=== PATIENT | male | born 1935 | race Caucasian/White ===

== ENCOUNTER 2017-01-21 18:34 | Emergency (ER) | payer MEDICARE, OTHER ==
[2017-01-21] MEDS ORDERED: Sodium Chloride 0.9% 10 ML Syringe FLUSH PRN (18:56)
[2017-01-21] MEDS ORDERED: Sodium Chloride 0.9% 1,000 ML IV SCH (19:00)
--- NOTE | 2017-01-21 19:16 | EDM.PDOC ---
ED HPI ALTERED MENTAL STATUS - General Chief Complaint: Neurological Problem Stated Complaint: CONFUSED Time Seen by Provider: 01/21/17 18:45 Source of Information: Reports: Patient, Family, RN, RN notes reviewed History Limitations: Reports: Altered mental status - History of Present Illness INITIAL COMMENTS - FREE TEXT/NARRATIVE: Patient is brought to the ED at [facility] via POV with a complain of new onset acute confusion. The states the patient was started on Aricept 5 mg the beginning of December. Patient's symptoms did not improve, so his dose was increased to 10 mg about 4 days ago. believe his symptoms correlate with the dose increase 4 days ago. No recent head trauma or injury. Patient has known dementia. states patient has not been eating or drinking well. Patient has been more confused and restless at home. No other changes with medications. Baseline Mental Status: Reports: alert/confused, ST memory loss, demented Timing/Duration: Reports: Constant Context: Reports: chronic/long standing, new meds, change medication regime - Related Data Allergies/ADRs: Allergies No Known Allergies Allergy (Verified 01/21/17 18:45) Home Meds: Home Meds Aspirin 01/21/17 [History] Bimatoprost [LUMIGAN 0.01% Ophth Soln] 01/21/17 [History] Calcium Citrate/Vitamin D3 [Calcium Cit-Vit D 315-200] 01/21/17 [History] Donepezil [Aricept] 01/21/17 [History] Levothyroxine 01/21/17 [History] Midodrine HCl [Midodrine HCl] 01/21/17 [History] Multivitamin [Multivitamins] 01/21/17 [History] Nitrofurantoin Macrocrystal [Macrodantin] 100 mg PO BID #10 capsule 01/21/17 [Rx ] Rosuvastatin [Crestor] 01/21/17 [History] Past Medical History Cardiovascular History: Reports: Bypass, Pacemaker - Past Surgical History GI Surgical History: Reports: Cholecystectomy Social & Family History - Tobacco Use Smoking Status *Q: Never Smoker - Recreational Drug Use Recreational Drug Use: No ED ROS GENERAL - Review of Systems Review Of Systems: See Below (ROS obtain from patient's ) Constitutional: Denies: fever, chills, weakness Respiratory: Denies: shortness of breath, cough Cardiovascular: Denies: Chest pain, Palpitations GI/Abdominal: Reports: Diarrhea. Denies: Abdominal pain, Nausea, Vomiting Skin: Reports: no symptoms Neurological: Reports: headache. Denies: dizziness, numbness, paresthesia, tingling - Physical Exam Exam: See Below Exam Limited By: Altered mental status General Appearance: alert, no apparent distress Eye Exam: bilateral eye: EOMI, normal inspection, PERRL Ears: normal external exam, normal canal, hearing grossly normal, normal TMs Nose: normal inspection, normal mucosa Throat/Mouth: Normal inspection, Normal oropharynx, No airway compromise Head Exam: atraumatic, normocephalic Neck: supple Respiratory/Chest: no respiratory distress, lungs clear, decreased breath sounds Cardiovascular: normal peripheral pulses, regular rate, rhythm GI/Abdominal: normal bowel sounds, soft, non tender, no distention Neuro Exam (Abbreviated): alert, inattentive, confused, disoriented, slow to respond Skin Exam: Warm, Dry, Intact, Normal color, No rash EKG INTERPRETATION EKG Date: 01/21/17 Time: 19:04 Rhythm: other (Atrial Paced) Rate (beats/min): 70 Jackson: LAD-left axis deviation P-wave: enlarged QRS: normal ST-T: normal QT: normal MI/PQ Interval: 0.24 Comparison: NA - no prior EKG EKG Interpretation Comments: 1. Electric Atrial Pacemaker 2. Marked Left Jackson deviation (QRS Jackson <-30) 3. Moderate IVCD (110+ ms QRS duration) 4. Voltage criteria for LVH (Meets criteria in one of: R(aVL), S(V1), R(V5), R( v5/v6)+S(V1) 5. Non-specific T wave abnormality Course - Vital Signs Last Recorded V/S: Last Vital Signs Temp 35.5 C 01/21/17 18:47 Pulse 64 01/21/17 18:47 Resp 16 01/21/17 18:47 BP 135/80 01/21/17 18:47 Pulse Ox 95 01/21/17 18:47 - Orders/Labs/Meds Orders: Active Orders 24 hr Category Date Time Status EKG 12 Lead [EKG Documentation Completion] [RC] STAT Care 01/21/17 18:55 Active Insert Munson Catheter [Insert Urinary Catheter] [OM.PC] Care 01/21/17 20:15 Ordered Q24H Urinary Catheter Assessment [RC] ASDIRECTED Care 01/21/17 20:03 Active Head wo Cont [CT] Stat Exams 01/21/17 18:55 Taken Sodium Chloride 0.9% [Normal Saline] 1,000 ml Med 01/21/17 19:00 Active IV ASDIRECTED Sodium Chloride 0.9% [Saline Flush] Med 01/21/17 18:56 Active 10 ml FLUSH ASDIRECTED PRN Peripheral IV Insertion Adult [OM.PC] Routine Oth 01/21/17 18:56 Ordered Medication Orders Sodium Chloride (Normal Saline) 1,000 mls @ 999 mls/hr IV ASDIRECTED MILTON Last Admin: 01/21/17 19:26 Dose: 999 mls/hr Sodium Chloride (Saline Flush) 10 ml FLUSH ASDIRECTED PRN PRN Reason: Keep Vein Open Labs: Laboratory Tests 01/21/17 01/21/17 01/21/17 Range/Units 19:10 19:10 19:10 WBC 10.5 H (4.0-10.0) x10^3/uL RBC 4.95 (4.5-6.0) x10^6/uL Hgb 15.2 (14.0-18.0) g/dL Hct 45.2 (40.0-52.0) % MCV 91.3 (78.0-93.0) fL MCH 30.7 (26.0-32.0) pg MCHC 33.6 (32.0-36.0) g/dL RDW Coeff of Adán 14.2 (10.0-15.0) % Plt Count 217 (130-400) x10^3/uL Neut % (Auto) 87.8 H (50.0-80.0) % Lymph % (Auto) 6.2 L (25.0-50.0) % [place] % (Auto) 5.5 (2.0-11.0) % Eos % (Auto) 0.3 (0.0-4.0) % Baso % (Auto) 0.2 (0.2-1.2) % POC ABG pH (7.35-7.45) POC ABG pCO2 (35-45) mmHG POC ABG pO2 (80-105) mmHG POC ABG HCO3 (22-26) mmol/L POC ABG Total CO2 (23-27) mmol/L POC ABG O2 Sat (95-98) % POC ABG Base Excess (-2-3) mmol/L POC FiO2 Sodium 137 (136-145) mmol/L Potassium 4.2 (3.5-5.1) mmol/L Chloride 104 (98-107) mmol/L Carbon Dioxide 26 (21-32) mmol/L BUN 19 H (7-18) mg/dL Creatinine 1.2 (0.70-1.30) mg/dL Est Cr Clr Drug Dosing 49.85 mL/min Estimated GFR (MDRD) 58 Glucose 119 H (74-106) mg/dL Lactic Acid 1.3 (0.4-2.0) mmol/L Calcium 9.0 (8.5-10.1) mg/dL Corrected Calcium 9.32 (8.5-10.1) mg/dL Total Bilirubin 1.6 H (0.2-1.0) mg/dL AST 23 (15-37) U/L ALT 26 (16-63) U/L Alkaline Phosphatase 106 (46-116) U/L C-Reactive Protein 1.9 H (<=0.9) mg/dL Total Protein 7.0 (6.4-8.2) g/dL Albumin 3.6 (3.4-5.0) g/dL Globulin 3.4 Albumin/Globulin Ratio 1.06 TSH, Ultra Sensitive (0.358-3.74) uIU/mL Urine Color (YELLOW) Urine Appearance (CLEAR) Urine pH (5.0-8.0) Ur Specific Marion Urine Protein (NEGATIVE) mg/dL Urine Glucose (UA) (NEGATIVE) mg/dL Urine Ketones (NEGATIVE) mg/dL Urine Occult Blood (NEGATIVE) Urine Nitrite (NEGATIVE) Urine Bilirubin (NEGATIVE) Urine Urobilinogen (0.2) EU/dL Ur Leukocyte Esterase (NEGATIVE) Urine RBC (NOT SEEN) /HPF Urine WBC (NOT SEEN) /HPF Ur Transition Epith Cell (NEGATIVE) /HPF Urine Bacteria (NEGATIVE) /HPF Urine Mucus (NEGATIVE) /LPF 01/21/17 01/21/17 01/21/17 Range/Units 19:10 19:21 20:17 WBC (4.0-10.0) x10^3/uL RBC (4.5-6.0) x10^6/uL Hgb (14.0-18.0) g/dL Hct (40.0-52.0) % MCV (78.0-93.0) fL MCH (26.0-32.0) pg MCHC (32.0-36.0) g/dL RDW Coeff of Adán (10.0-15.0) % Plt Count (130-400) x10^3/uL Neut % (Auto) (50.0-80.0) % Lymph % (Auto) (25.0-50.0) % [place] % (Auto) (2.0-11.0) % Eos % (Auto) (0.0-4.0) % Baso % (Auto) (0.2-1.2) % POC ABG pH 7.392 (7.35-7.45) POC ABG pCO2 34 L (35-45) mmHG POC ABG pO2 68 L (80-105) mmHG POC ABG HCO3 21 L (22-26) mmol/L POC ABG Total CO2 22 L (23-27) mmol/L POC ABG O2 Sat 93 L (95-98) % POC ABG Base Excess -4 L (-2-3) mmol/L POC FiO2 0.21 Sodium (136-145) mmol/L Potassium (3.5-5.1) mmol/L Chloride (98-107) mmol/L Carbon Dioxide (21-32) mmol/L BUN (7-18) mg/dL Creatinine (0.70-1.30) mg/dL Est Cr Clr Drug Dosing mL/min Estimated GFR (MDRD) Glucose (74-106) mg/dL Lactic Acid (0.4-2.0) mmol/L Calcium (8.5-10.1) mg/dL Corrected Calcium (8.5-10.1) mg/dL Total Bilirubin (0.2-1.0) mg/dL AST (15-37) U/L ALT (16-63) U/L Alkaline Phosphatase (46-116) U/L C-Reactive Protein (<=0.9) mg/dL Total Protein (6.4-8.2) g/dL Albumin (3.4-5.0) g/dL Globulin Albumin/Globulin Ratio TSH, Ultra Sensitive 3.200 (0.358-3.74) uIU/mL Urine Color Dark yellow H (YELLOW) Urine Appearance Turbid H (CLEAR) Urine pH 5.5 (5.0-8.0) Ur Specific Marion 1.025 Urine Protein Trace H (NEGATIVE) mg/dL Urine Glucose (UA) Negative (NEGATIVE) mg/dL Urine Ketones 40 H (NEGATIVE) mg/dL Urine Occult Blood Small H (NEGATIVE) Urine Nitrite Positive H (NEGATIVE) Urine Bilirubin Negative (NEGATIVE) Urine Urobilinogen 0.2 (0.2) EU/dL Ur Leukocyte Esterase Negative (NEGATIVE) Urine RBC 0-5 (NOT SEEN) /HPF Urine WBC 5-10 H (NOT SEEN) /HPF Ur Transition Epith Cell Occasional H (NEGATIVE) /HPF Urine Bacteria Many H (NEGATIVE) /HPF Urine Mucus Rare H (NEGATIVE) /LPF Meds: Medications Generic Name Dose Route Start Last Admin Trade Name Freq PRN Reason Stop Dose Admin Sodium Chloride 1,000 mls @ 999 mls/hr 01/21/17 19:00 01/21/17 19:26 Normal Saline IV 999 mls/hr ASDIRECTED MILTON Administration Sodium Chloride 10 ml 01/21/17 18:56 Saline Flush FLUSH ASDIRECTED PRN Keep Vein Open Departure - Departure Time of Disposition: 20:42 Disposition: Home, Self-Care 01 Condition: good Clinical Impression: Urinary tract infection Qualifiers: Urinary tract infection type: acute cystitis Hematuria presence: with hematuria Qualified Code(s): N30.01 - Acute cystitis with hematuria Dementia Qualifiers: Dementia type: unspecified type Dementia behavioral disturbance: with behavioral disturbance Qualified Code(s): F03.91 - Unspecified dementia with behavioral disturbance Prescriptions: Nitrofurantoin Macrocrystal [Macrodantin] 100 mg PO BID #10 capsule Instructions: Urinary Tract Infection, Adult Referrals: Lily Stephens MD [Primary Care Provider] - Forms: ED Department Discharge Additional Instructions: 1. Stay well hydrated and rest 2. Take antibiotics for the full coarse, even if you are feeling better 3. See your Primary as symptoms warrant; may discuss concerns about Aricept with Dr. Kat WU Communication - ED Communication Date/Time Date: 01/21/17 Time Called: 20:05 - Discussed Case With (1) Discussed Case With (1): Radiologist Person/s Notified (1): Herbie Stoner - Conversation Summary Radiology Reading Discussed with Radiologist: Yes Summary Comment: No acute changes/pathology on CT Head scan - Problem List Review Problem List Initiated/Reviewed/Updated: Yes - My Orders Last 24 Hours: My Active Orders 01/21/17 18:55 EKG 12 Lead [EKG Documentation Completion] [RC] STAT Head wo Cont [CT] Stat 01/21/17 18:56 Sodium Chloride 0.9% [Saline Flush] 10 ml FLUSH ASDIRECTED PRN Peripheral IV Insertion Adult [OM.PC] Routine 01/21/17 19:00 Sodium Chloride 0.9% [Normal Saline] 1,000 ml IV ASDIRECTED 01/21/17 20:03 Urinary Catheter Assessment [RC] ASDIRECTED 01/21/17 20:15 Insert Munson Catheter [Insert Urinary Catheter] [OM.PC] Q24H - Assessment/Plan Last 24 Hours: My Active Orders 01/21/17 18:55 EKG 12 Lead [EKG Documentation Completion] [RC] STAT Head wo Cont [CT] Stat 01/21/17 18:56 Sodium Chloride 0.9% [Saline Flush] 10 ml FLUSH ASDIRECTED PRN Peripheral IV Insertion Adult [OM.PC] Routine 01/21/17 19:00 Sodium Chloride 0.9% [Normal Saline] 1,000 ml IV ASDIRECTED 01/21/17 20:03 Urinary Catheter Assessment [RC] ASDIRECTED 01/21/17 20:15 Insert Munson Catheter [Insert Urinary Catheter] [OM.PC] Q24H
[2017-01-21] MEDS ORDERED: Take Home: Nitrofurantoin Monohydrate/Macrocrystalline 100 MG, 2 Cap Pack PO ONE (20:48)
[2017-01-21] MEDS ORDERED: Nitrofurantoin Monohydrate/Macrocrystalline 100 MG Cap ONE (21:00)
[2017-01-21 21:07] VITALS: BP 134/71
== END 2017-01-21 21:17 | disposition home or self-care (01) ==
LOC: VM.ED 18:34
DX: F03.91 Unspecified dementia, unspecified severity, with behavioral disturbance (principal); N30.01 Acute cystitis with hematuria; Z79.82 Long term (current) use of aspirin; Z90.49 Acquired absence of other specified parts of digestive tract
CPT/HCPCS: 36415; 36600; 70450; 80053; 81001; 82803; 83605; 84443; 85025; 86140; 93005; 96360; 96361; 99285; A9270; J7030; 99284-GF

== ENCOUNTER 2017-03-08 12:06 | Day surgery (SDC) | payer MEDICARE, OTHER ==
[~2017-03-08 12:06] MED LIST: Brimonidine 0.2% Ophth Soln 5 ML Bottle ONE; Cataract Ophth Solution EYERT PRN; Hypromellose 2.5% Ophth Soln 15 ML Bottle EYERT PRN; Lactated Ringers 1,000 ML IV SCH; Lidocaine 1% 2 ML ONE; Lidocaine 3.5% Ophth Gel 1 ML Bottle ONE; Povidone-Iodine 5% Sterile Ophth Soln 30 ML Bottle ONE
[2017-03-08] MEDS: Proparacaine 0.5% Ophth Soln 15 ML Bottle EYERT PRN ×2 (12:39→13:51)
[2017-03-08] MEDS ORDERED: Lidocaine 1% PF 2 ML SDV INFILT ONE (13:51)
[2017-03-08] MEDS ORDERED: Ciprofloxacin 0.3% Ophth Soln 2.5 ML Bottle EYELF ONE (13:52)
[2017-03-08] MEDS ORDERED: Chondroitin Sulfate/Hyaluronate Sodium Ophth Inj 0.5 ML Syringe IOCULAR ONE (13:52)
[2017-03-08] MEDS ORDERED: Balanced Salt Solution Ophth Irrig 500 ML Bottle IOCULAR ONE (13:53)
[2017-03-08] MEDS ORDERED: Vancomycin 500 MG SDV EYERT ONE (13:53)
[2017-03-08 14:06] VITALS: BP 155/99
--- NOTE | 2017-03-10 08:21 | OR ---
PREOPERATIVE DIAGNOSIS: Senile nuclear cataract, right eye. POSTOPERATIVE DIAGNOSIS: Pseudophakia, right eye. PROCEDURE PERFORMED: Cataract extraction with intraocular lens implantation by phacoemulsification technique, right eye. ANESTHESIA: Topical anesthesia. ESTIMATED BLOOD LOSS: None. COMPLICATIONS: None. INDICATIONS: The patient is an 81-year-old gentleman, who was found to have a senile nuclear cataract, reducing his best corrected visual acuity. After explaining the risks, benefits, and alternatives of cataract surgery, an informed consent was obtained. DESCRIPTION OF PROCEDURE: After identifying the patient in the preoperative area, the patient was brought to the operating room. The patient was prepped and draped in a sterile fashion. A lid speculum was inserted into the eye. The microscope was brought into the field. Lidocaine gel was applied to the external surface of the eye. A paracentesis was made 3 clock hours away from the surgeon's operating hand. The anterior chamber was anesthetized with preservative-free Lidocaine. The anterior chamber was filled with Viscoat. A clear corneal incision was made at the 180-degree meridian with a 2.75mm keratome. A continuous tear circular capsulorrhexis was performed. The nucleus was hydrodissected with balanced salt solution. The nucleus was sculpted and removed from the eye using a divide and conquer technique with the phacoemulsification handpiece. The residual viscoelastic was removed with the I/A handpiece. The anterior chamber and capsular bag were filled with Amvisc. An MICHELE lens, model PCB00 with a power of 14.0 diopters and a serial number of [id number] was injected into the capsular bag. The lens was rotated completely into the capsular bag with a Sinskey hook. The residual viscoelastic was removed with the I/A handpiece. The anterior chamber was filled with balanced salt solution to a physiologic pressure. The corneal wound was closed with stromal hydration and seen to be water tight by Weck-Bernadine sponge testing. The patient received a drop of Zymar and Alphagan at the end of the case. There were no complications of this case. The patient will be followed postoperatively by Dr. Ashly Lopez. SKA: 03/08/2017 14:53:40 MODL: 03/08/2017 18:22:59 /[id number]
== END 2017-03-08 15:05 | disposition home or self-care (01) ==
LOC: VM.SDS 12:06
PROVIDERS: ATTEND Ophthalmology
DX: H25.11 Age-related nuclear cataract, right eye (principal); Z96.1 Presence of intraocular lens; Z79.899 Other long term (current) drug therapy; I10 Essential (primary) hypertension; I25.810 Atherosclerosis of coronary artery bypass graft(s) without angina pectoris; E07.9 Disorder of thyroid, unspecified
CPT/HCPCS: 00142; 66984; A9270; J3370; J7120; V2632

== ENCOUNTER 2017-04-05 11:40 | Day surgery (SDC) | payer MEDICARE, OTHER ==
[~2017-04-05 11:40] MED LIST changes: +Cataract Ophth Solution EYELF PRN; -Cataract Ophth Solution EYERT PRN; +Hypromellose 2.5% Ophth Soln 15 ML Bottle EYELF PRN; -Hypromellose 2.5% Ophth Soln 15 ML Bottle EYERT PRN; -Lactated Ringers 1,000 ML IV SCH; +Sodium Chloride 0.9% 10 ML Syringe FLUSH PRN
[2017-04-05] MEDS: Proparacaine 0.5% Ophth Soln 15 ML Bottle EYELF PRN ×2 (12:16→13:24)
[2017-04-05] MEDS ORDERED: Lidocaine 1% PF 2 ML SDV INJECT ONE (13:25)
[2017-04-05] MEDS ORDERED: Chondroitin Sulfate/Hyaluronate Sodium Ophth Inj 0.5 ML Syringe IOCULAR ONE (13:29)
[2017-04-05] MEDS ORDERED: Ciprofloxacin 0.3% Ophth Soln 2.5 ML Bottle EYELF ONE (13:30)
[2017-04-05] MEDS ORDERED: Vancomycin 500 MG SDV EYELF ONE (13:30)
[2017-04-05] MEDS ORDERED: Balanced Salt Solution Ophth Irrig 500 ML Bottle IOCULAR ONE (13:31)
[2017-04-05 13:45] VITALS: BP 148/88
--- NOTE | 2017-04-06 09:31 | OR ---
PREOPERATIVE DIAGNOSIS: Senile nuclear cataract, left eye. POSTOPERATIVE DIAGNOSIS: Pseudophakia, left eye. PROCEDURE PERFORMED: Cataract extraction with intraocular lens implantation by phacoemulsification technique, left eye. ANESTHESIA: Topical anesthesia. ESTIMATED BLOOD LOSS: None. COMPLICATIONS: None. INDICATIONS: The patient is an 81-year-old gentleman, who was found to have a senile nuclear cataract, reducing his best corrected visual acuity. After explaining the risks, benefits, alternatives of cataract surgery an informed consent was obtained. DESCRIPTION OF PROCEDURE: After identifying the patient in the preoperative area, the patient was brought to the operating room. The patient was prepped and draped in a sterile fashion. A lid speculum was inserted into the eye. The microscope was brought into the field. Lidocaine gel was applied to the external surface of the eye. A paracentesis was made 3 clock hours away from the surgeon's operating hand. The anterior chamber was anesthetized with preservative-free Lidocaine. The anterior chamber was filled with Viscoat. A clear corneal incision was made at the 180-degree meridian with a 2.75mm keratome. A continuous tear circular capsulorrhexis was performed. The nucleus was hydrodissected with balanced salt solution. The nucleus was sculpted and removed from the eye using a divide and conquer technique with the phacoemulsification handpiece. The residual viscoelastic was removed with the I/A handpiece. The anterior chamber and capsular bag were filled with Amvisc. An MICHELE lens, model ZCB00 with a power of 13.5 diopters and a serial number of [id number] was injected into the capsular bag. The lens was rotated completely into the capsular bag with a Sinskey hook. The residual viscoelastic was removed with the I/A handpiece. The anterior chamber was filled with balanced salt solution to a physiologic pressure. The corneal wound was closed with stromal hydration and seen to be water tight by Weck-Bernadine sponge testing. The patient received a drop of Zymar and Alphagan at the end of the case. There were no complications of this case. The patient will be followed postoperatively by Dr. Ashly Lopez. SKA: 04/05/2017 15:07:42 MODL: 04/05/2017 22:14:08 /[id number]
== END 2017-04-05 14:35 | disposition home or self-care (01) ==
LOC: VM.SDS 11:40
PROVIDERS: ATTEND Ophthalmology
DX: Z96.1 Presence of intraocular lens (principal); I25.810 Atherosclerosis of coronary artery bypass graft(s) without angina pectoris; Z95.0 Presence of cardiac pacemaker; Z90.49 Acquired absence of other specified parts of digestive tract; Z98.890 Other specified postprocedural states; I10 Essential (primary) hypertension; G47.33 Obstructive sleep apnea (adult) (pediatric); I50.32 Chronic diastolic (congestive) heart failure; E03.9 Hypothyroidism, unspecified; F03.90 Unspecified dementia, unspecified severity, without behavioral disturbance, psychotic disturbance, mood disturbance, and anxiety; Z79.82 Long term (current) use of aspirin; Z79.899 Other long term (current) drug therapy; K21.9 Gastro-esophageal reflux disease without esophagitis
CPT/HCPCS: 00142; 66984; A9270; C1780; J3370

== ENCOUNTER 2017-06-30 13:30 | Emergency (ER) | payer MEDICARE, OTHER ==
[2017-06-30 13:39] VITALS: BP 158/85
[2017-06-30] MEDS ORDERED: diphenhydrAMINE 50 MG/ML SDV IM ONE (13:48)
[2017-06-30] MEDS ORDERED: methylPREDNISolone Sodium Succinate 125 MG/2 ML SDV IM ONE (13:48)
--- NOTE | 2017-06-30 21:10 | ER ---
Date of Service: 06/30/2017 SUBJECTIVE: Mateus presents to the emergency room with numerous yellow jacket insect stings. The patient states that [place] and when he lifted the wood, there was a yellow jacket nest underneath it. He states that he was stung unknown number of times, and states that he feels as though it was possibly around 20 times. The patient states that he is experiencing primary discomfort to the nape of his neck, to his scalp, and to posterior aspects of his face. He also states that he was stung several times in the chest and back as well as maximally both of his arms. The patient states he is not experiencing any shortness of breath or throat tightness and states he has not taken anything for the discomfort. PAST MEDICAL HISTORY: 1. Coronary artery disease. 2. Hypothyroidism. 3. Dementia. 4. Dyslipidemia. 5. BPH. 6. Congestive heart failure. 7. Status post pacemaker placement. 8. Sinoatrial node dysfunction. 9. Cerebrovascular disease. 10.Orthostatic hypotension. 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 12.Sleep apnea. 13.Osteoarthritis. MEDICATIONS: See nurse's notes. ALLERGIES: NKDA. REVIEW OF SYSTEMS: Denies any throat tightness, shortness of breath, difficulties with breathing or chest tightness. Please see history of present illness. PHYSICAL EXAMINATION: General: This is an 82-year-old male patient, who is in no acute distress. Vital Signs: Blood pressure is 158/85, heart rate is 54, temperature is 36.0, respiratory rate is 20, O2 saturations 98%. Skin: Warm, pink, and dry. HEENT: Head is normocephalic, atraumatic. He does have what appears to be some swelling to the posterior aspect of his neck. There is no urticaria or large welts noted. Chest: Lungs are clear to auscultation. Heart: Regular rate and rhythm. As have numerous welts to lateral aspect of his chest and abdomen. Abdomen: Soft and nontender. Extremities: He does have several stings also to his arms and to his hands. All totaled, I would estimate there was approximately about 8 to 9 bite zaldivar on the patient. EMERGENCY ROOM COURSE: The patient was given injection of Solu-Medrol 125 mg IM and Benadryl 50 mg IM. He was observed for approximately 1 hour and did not exhibit any signs of anaphylaxis or worsening reaction. He remained stable in my care in the emergency room. ASSESSMENT: Yellow jacket envenomation. PLAN: The patient will be discharged. He is quite uncomfortable wanting to be given medication for this. The inflammation is very widespread making it difficult to apply any sort of topical agent. I did advise that he go home and take oatmeal or baking soda bath to help with the discomfort. He is to return to the emergency room if he develops any shortness of breath, chest pain, or other worrisome signs or symptoms. All questions were answered. MWK: 06/30/2017 16:39:14 MODL: 06/30/2017 21:02:39 /[id number]
== END 2017-06-30 14:30 | disposition home or self-care (01) ==
LOC: VM.ED 13:30
DX: T63.461A Toxic effect of venom of wasps, accidental (unintentional), initial encounter (principal); I25.10 Atherosclerotic heart disease of native coronary artery without angina pectoris; E03.9 Hypothyroidism, unspecified; F03.90 Unspecified dementia, unspecified severity, without behavioral disturbance, psychotic disturbance, mood disturbance, and anxiety; E78.5 Hyperlipidemia, unspecified; I50.9 Heart failure, unspecified; M81.0 Age-related osteoporosis without current pathological fracture; Z95.0 Presence of cardiac pacemaker
CPT/HCPCS: 99282; J1200; J2930; 96372; 99283-GF

== ENCOUNTER 2017-07-19 17:23 | Emergency (ER) | payer MEDICARE, OTHER ==
[2017-07-19] MEDS ORDERED: Ondansetron 4 MG/2 ML SDV IVPUSH ONE (17:47)
[2017-07-19] MEDS ORDERED: Sodium Chloride 0.9% 1,000 ML IV ONE (17:47)
[2017-07-19] MEDS ORDERED: Sodium Chloride 0.9% 10 ML Syringe FLUSH PRN (18:06)
[2017-07-19] MEDS ORDERED: Sodium Chloride 0.9% 500 ML IV ONE (18:07)
[2017-07-19 18:09] VITALS: BP 149/3
--- NOTE | 2017-07-19 18:09 | EDM.PDOC ---
ED HPI GENERAL MEDICAL PROBLEM - General Chief Complaint: Gastrointestinal Problem Stated Complaint: diarrhea, nausea Time Seen by Provider: 07/19/17 17:50 Source of Information: Reports: Patient, Family History Limitations: Reports: Other (dementia) - History of Present Illness INITIAL COMMENTS - FREE TEXT/NARRATIVE: Patient and report diarrhea, nausea, vomiting that started this morning. No fever, no chills, no SOB, or chest pain. Denies abdominal pain. No blood in urine or stool. 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 No smoking, drinking, street drugs. Onset: Today Onset Date: 07/19/17 Associated Symptoms: Reports: No Other Symptoms - Related Data Allergies Allergy/AdvReac Type Severity Reaction Status Date / Time No Known Allergies Allergy Verified 07/19/17 17:48 Home Meds: Home Meds Aspirin 81 mg PO DAILY 01/21/17 [History] Bimatoprost [LUMIGAN 0.01% Ophth Soln] 1 drop EYEBOTH BEDTIME 01/21/17 [History] Calcium Citrate/Vitamin D3 [Calcium Cit-Vit D 315-200] 1 tab PO DAILY 01/21/17 [ History] Donepezil [Aricept] 10 mg PO BEDTIME 01/21/17 [History] Levothyroxine 50 mcg PO DAILY 01/21/17 [History] Midodrine HCl [Midodrine HCl] 5 mg PO TID 01/21/17 [History] Multivitamin [Multivitamins] 1 tab PO DAILY 01/21/17 [History] Rosuvastatin [Crestor] 5 mg PO DAILY 01/21/17 [History] Tamsulosin HCl [Flomax] 0.4 mg PO DAILY 06/30/17 [History] Past Medical History HEENT History: Reports: Cataract, Glaucoma Cardiovascular History: Reports: Bypass, CAD, Heart Failure, High Cholesterol, Hypertension, Pacemaker, Other (See Below) Other Cardiovascular History: sinoatrial node dysfunction. cerebrovascular disease. orthostatic hypotension. endocarditis Respiratory History: Reports: Sleep Apnea Gastrointestinal History: Reports: Diverticulosis, GERD Genitourinary History: Reports: Other (See Below) Other Genitourinary History: elevated psa Musculoskeletal History: Reports: Osteoarthritis, Other (See Below) Other Musculoskeletal History: myalgia and myositis Neurological History: Reports: Other (See Below) Other Neuro History: cerebralvascular disease. cervical disk disease Psychiatric History: Reports: Dementia, Depression, Other (See Below) Other Psychiatric History: sleep disorder Endocrine/Metabolic History: Reports: Hypothyroidism, Other (See Below) Other Endocrine/Metabolic History: fatigue. hyperglycemia Hematologic History: Reports: None Immunologic History: Reports: None Oncologic (Cancer) History: Reports: Other (See Below) Other Oncologic History: skin ca Dermatologic History: Reports: None - Past Surgical History Head Surgeries/Procedures: Reports: None HEENT Surgical History: Reports: Cataract Surgery, Naso-Sinus Surgery, Tonsillectomy Cardiovascular Surgical History: Reports: Coronary Artery Bypass GI Surgical History: Reports: Appendectomy, Cholecystectomy, Hernia, Abdominal, Hernia, Inguinal, Heather Fundoplication Male Surgical History: Reports: Other (See Below) Musculoskeletal Surgical History: Reports: Arthroscopic Knee Social & Family History - Tobacco Use Smoking Status *Q: Unknown Ever Smoked - Alcohol Use Days Per Week of Alcohol Use: 0 Number of Drinks Per Day: 0 Total Drinks Per Week: 0 - Recreational Drug Use Recreational Drug Use: No Drug Use in Last 12 Months: No ED ROS GENERAL - Review of Systems Review Of Systems: See Below Constitutional: Reports: No Symptoms HEENT: Reports: No Symptoms Respiratory: Reports: No Symptoms Cardiovascular: Reports: No Symptoms Endocrine: Reports: No Symptoms GI/Abdominal: Reports: Diarrhea, Nausea : Reports: No Symptoms Musculoskeletal: Reports: No Symptoms Skin: Reports: No Symptoms Neurological: Reports: Weakness Psychiatric: Reports: No Symptoms Hematologic/Lymphatic: Reports: No Symptoms Immunologic: Reports: No Symptoms ED EXAM, GI/ABD - Physical Exam Exam: See Below Exam Limited By: Other (forgetful, dementia) General Appearance: Alert, WD/WN, No Apparent Distress Eyes: Bilateral: EOMI Ears: Normal TMs Nose: Normal Inspection Throat/Mouth: Normal Inspection, Normal Oropharynx Head: Atraumatic, Normocephalic Neck: Normal Inspection, Supple, Non-Tender, Full Range of Motion Respiratory/Chest: No Respiratory Distress, Lungs Clear, No Accessory Muscle Use , Respiratory Distress Cardiovascular: Normal Peripheral Pulses, Regular Rate, Rhythm, No Edema GI/Abdominal Exam: Normal Bowel Sounds, Soft Back Exam: Normal Inspection, Full Range of Motion Extremities: Normal Inspection, Normal Range of Motion, Non-Tender, Normal Capillary Refill Neurological: Alert, Oriented, CN II-XII Intact, Normal Cognition, Normal Gait, Normal Reflexes, No Motor/Sensory Deficits Psychiatric: Normal Affect, Normal Mood Skin Exam: Warm, Dry, Intact, Normal Color, No Rash Lymphatic: No Adenopathy Course - Vital Signs Last Recorded V/S: Last Vital Signs Temp 36.4 C 07/19/17 17:59 Pulse 73 07/19/17 17:59 Resp 16 07/19/17 17:59 BP 149/3 H 07/19/17 17:59 Pulse Ox 96 07/19/17 17:59 - Orders/Labs/Meds Orders: Active Orders 24 hr Category Date Time Status URINALYSIS W/MICROSCOPIC [UA W/MICROSCOPIC] [URIN] Stat Lab 07/19/17 18:06 Uncollected Sodium Chloride 0.9% [Saline Flush] Med 07/19/17 18:06 Active 10 ml FLUSH ASDIRECTED PRN Saline Lock Insert [OM.PC] Routine Oth 07/19/17 18:06 Ordered Medication Orders Sodium Chloride (Saline Flush) 10 ml FLUSH ASDIRECTED PRN PRN Reason: Keep Vein Open Labs: Laboratory Tests 07/19/17 07/19/17 07/19/17 Range/Units 18:10 18:10 18:10 WBC 9.8 (4.0-10.0) x10^3/uL RBC 4.51 (4.5-6.0) x10^6/uL Hgb 13.6 L D (14.0-18.0) g/dL Hct 41.5 (40.0-52.0) % MCV 92.0 (78.0-93.0) fL MCH 30.2 (26.0-32.0) pg MCHC 32.8 (32.0-36.0) g/dL RDW Coeff of Adán 14.4 (10.0-15.0) % Plt Count 193 (130-400) x10^3/uL Neut % (Auto) 88.1 H (50.0-80.0) % Lymph % (Auto) 6.6 L (25.0-50.0) % [place] % (Auto) 4.7 (2.0-11.0) % Eos % (Auto) 0.5 (0.0-4.0) % Baso % (Auto) 0.1 L (0.2-1.2) % Sodium 139 (136-145) mmol/L Potassium 4.3 (3.5-5.1) mmol/L Chloride 105 (98-107) mmol/L Carbon Dioxide 27 (21-32) mmol/L BUN 16 (7-18) mg/dL Creatinine 1.0 (0.70-1.30) mg/dL Est Cr Clr Drug Dosing TNP Estimated GFR (MDRD) > 60 Glucose 106 (74-106) mg/dL Calcium 8.4 L (8.5-10.1) mg/dL C-Reactive Protein 0.9 (<=0.9) mg/dL TSH, Ultra Sensitive 2.402 (0.358-3.74) uIU/mL Meds: Medications Generic Name Dose Route Start Last Admin Trade Name Freq PRN Reason Stop Dose Admin Sodium Chloride 10 ml 07/19/17 18:06 Saline Flush FLUSH ASDIRECTED PRN Keep Vein Open Discontinued Medications Generic Name Dose Route Start Last Admin Trade Name Freq PRN Reason Stop Dose Admin Sodium Chloride 1,000 mls @ 999 mls/hr 07/19/17 17:47 07/19/17 17:52 Normal Saline IV 07/19/17 18:47 999 mls/hr ONETIME ONE Administration Sodium Chloride 500 mls @ 500 mls/hr 07/19/17 18:07 Normal Saline IV 07/19/17 19:06 ONETIME ONE Ketorolac Tromethamine 15 mg 07/19/17 19:04 Toradol IVPUSH 07/19/17 19:05 ONETIME ONE Ondansetron HCl 4 mg 07/19/17 17:47 07/19/17 17:52 Zofran IVPUSH 07/19/17 17:48 4 mg ONETIME ONE Administration Departure - Departure Time of Disposition: 20:18 Disposition: Home, Self-Care 01 Condition: Good Clinical Impression: UTI, Urinary tract infectious disease, Gastroenteritis and colitis, viral - Discharge Information Instructions: Viral Gastroenteritis, Adult, [id number], Urinary Tract Infection, Adult, [id number] Forms: ED Department Discharge Additional Instructions: Stay well hydrated. You have a UTI and a viral gastroenteritis. Take the full course of Bactrim, even if you feel better. I have given you the dose for tonight as well as tomorrow morning. You will have to fill the prescription at the pharmacy for the rest of the antibiotic. Follow up with your primary provider as symptoms warrant. Please call us with any questions or concerns. - Problem List & Annotations (1) Gastroenteritis and colitis, viral SNOMED Code(s): 777270162 Code(s): A08.4 - VIRAL INTESTINAL INFECTION, UNSPECIFIED Status: Acute Priority: Low Current Visit: Yes (2) UTI, Urinary tract infectious disease SNOMED Code(s): 52021674 Code(s): N39.0 - URINARY TRACT INFECTION, SITE NOT SPECIFIED Status: Acute Priority: Low Current Visit: Yes - Problem List Review Problem List Initiated/Reviewed/Updated: Yes - My Orders Last 24 Hours: My Active Orders 07/19/17 18:06 URINALYSIS W/MICROSCOPIC [UA W/MICROSCOPIC] [URIN] Stat Sodium Chloride 0.9% [Saline Flush] 10 ml FLUSH ASDIRECTED PRN Saline Lock Insert [OM.PC] Routine - Assessment/Plan Last 24 Hours: My Active Orders 07/19/17 18:06 URINALYSIS W/MICROSCOPIC [UA W/MICROSCOPIC] [URIN] Stat Sodium Chloride 0.9% [Saline Flush] 10 ml FLUSH ASDIRECTED PRN Saline Lock Insert [OM.PC] Routine Assessment:: Gastroenteritis, viral Urinary tract infection Plan: Stay well hydrated. You have a UTI and a viral gastroenteritis. Take the full course of Bactrim, even if you feel better. I have given you the dose for tonight as well as tomorrow morning. You will have to fill the prescription at the pharmacy for the rest of the antibiotic. Follow up with your primary provider as symptoms warrant. Please call us with any questions or concerns.
[2017-07-19 18:36] LABS: CHLORIDE,CL 105 mmol/L (98-107); SODIUM,NA 139 mmol/L (136-145)
[2017-07-19] MEDS ORDERED: Ketorolac 15 MG/ML SDV IVPUSH ONE (19:04)
[2017-07-19] MEDS ORDERED: Take Home: Sulfamethoxazole/Trimethoprim 800-160 MG Tab, 2 Tab Pack PO ONE (20:09)
== END 2017-07-19 20:25 | disposition home or self-care (01) ==
LOC: VM.ED 17:23
DX: A08.4 Viral intestinal infection, unspecified (principal); N39.0 Urinary tract infection, site not specified; I11.0 Hypertensive heart disease with heart failure; I50.9 Heart failure, unspecified; E78.00 Pure hypercholesterolemia, unspecified; I25.10 Atherosclerotic heart disease of native coronary artery without angina pectoris; K21.9 Gastro-esophageal reflux disease without esophagitis; M19.90 Unspecified osteoarthritis, unspecified site; F32.9 Major depressive disorder, single episode, unspecified; F03.90 Unspecified dementia, unspecified severity, without behavioral disturbance, psychotic disturbance, mood disturbance, and anxiety; E03.9 Hypothyroidism, unspecified; Z98.49 Cataract extraction status, unspecified eye; Z95.0 Presence of cardiac pacemaker; Z95.1 Presence of aortocoronary bypass graft; Z90.49 Acquired absence of other specified parts of digestive tract; Z98.890 Other specified postprocedural states; Z79.82 Long term (current) use of aspirin; Z79.899 Other long term (current) drug therapy
CPT/HCPCS: 36415; 80048; 81001; 84443; 85025; 86140; 87086; 96361; 96374; 99284; A9270; J2405; J7030; 87186